=== PATIENT | female | born 1980 | race Two or more races ===

== ENCOUNTER 2018-05-16 02:35 | Inpatient (IN) | payer MEDICAID ==
[2018-05-16] MEDS: LACTATED RINGER'S 1,000 ML IV ×5 (04:10→22:51)
[2018-05-16] MEDS ORDERED: METHYLERGONOVINE 0.2 MG INJ IM (04:30)
[2018-05-16] MEDS ORDERED: LIDOCAINE 1% (MPF) 30 ML INJ INJ (04:30)
[2018-05-16] MEDS ORDERED: OXYTOCIN 30 UNITS/LR 500 ML IV ×2 (04:30)
[2018-05-16] MEDS ORDERED: BUTORPHANOL 1 MG INJ IV (04:30)
[2018-05-16] MEDS ORDERED: CARBOPROST 250 MCG INJ IM (04:30)
[2018-05-16] MEDS ORDERED: MISOPROSTOL 200 MCG TAB PR (04:30)
[2018-05-16] MEDS ORDERED: IBUPROFEN 600 MG TAB PO (04:30)
[2018-05-16 05:15] LABS: ADD MAN DIFF? NO
[2018-05-16 05:22] LABS: BASOPHILS % 0.2 % (0.0-2.0); EOSINOPHILS # 0.1 10^3/ul (0.0-0.5); EOSINOPHILS % 1.1 % (0.0-7.0); HEMATOCRIT 37.4 % (37.0-47.0); HEMOGLOBIN 12.3 g/dl (12.0-16.0); LYMPHOCYTES # 1.6 10^3/ul (0.8-2.9); LYMPHOCYTES % 19.7 % (15.0-51.0); MEAN CORPUSCULAR HGB CONC 32.9 g/dl (32.0-37.0); MEAN CORPUSCULAR VOLUME 91.2 fl (82.0-101.0); MEAN PLATELET VOLUME 11.4 fl (7.4-10.4); MONOCYTE # 0.6 10^3/ul (0.3-0.9); MONOCYTES % 7.3 % (0.0-11.0); NEUTROPHIL # 5.8 10^3/ul (1.6-7.5); NEUTROPHILS % 71.5 % (39.0-77.0); PLATELET COUNT 238 10^3/UL (140-415); RED CELL DISTRIBUTION WIDTH 14.2 % (11.5-14.5)
[2018-05-16 05:22] LABS: WHITE BLOOD COUNT 8.1 10^3/ul (4.8-10.8)
[2018-05-16 05:41] LABS: PROTIME 12.3 Sec (11.9-14.9)
[2018-05-16 05:42] LABS: PARTIAL THROMBOPLASTIN TIME 26.9 Sec (23.0-35.0)
[2018-05-16] MEDS ORDERED: MISOPROSTOL 50 MCG CAPSULE (06:18)
[2018-05-16] MEDS: MISOPROSTOL 50 MCG CAPSULE PO ×4 (06:21→20:18)
[2018-05-16 06:49] LABS: HEPATITIS B SURFACE ANTIGEN NEGATIVE (NEGATIVE)
[2018-05-16] MEDS ORDERED: MISOPROSTOL 50 MCG CAPSULE PO (09:00)
[2018-05-16] MEDS ORDERED: ACETAMINOPHEN 325 MG TAB PO (14:00)
[2018-05-16 15:09] LABS: RAPID PLASMA REAGIN NONREACTIVE (NR)
[2018-05-16] MEDS: BUTORPHANOL 2 MG INJ IV (15:21)
[2018-05-16] MEDS ORDERED: AMPICILLIN 2 GM/NS (PMX) 100 ML (20:16)
[2018-05-16] MEDS: AMPICILLIN 2 GM/NS (PMX) 100 ML IVPB (20:19)
[2018-05-16] MEDS ORDERED: ONDANSETRON 4 MG INJ IV (21:30)
[2018-05-16] MEDS ORDERED: DIPHENHYDRAMINE 50 MG INJ IV (21:30)
[2018-05-16] MEDS ORDERED: NALOXONE (0.4 MG/ML) INJ IV (21:30)
[2018-05-17] MEDS: AMPICILLIN 1 GM/NS (PMX) 50 ML IVPB (00:41)
[2018-05-17] MEDS: FENTAnyl 2MCG/ML-ROPIV 0.2% 100 ML BAG EPI (00:41)
[2018-05-17] MEDS: LACTATED RINGER'S 1,000 ML IV (02:00)
[2018-05-17] MEDS: OXYTOCIN 30 UNITS/LR 500 ML IV ×3 (03:57→05:45)
[2018-05-17] MEDS ORDERED: NACL 0.9% 3 ML SYG IV (04:30)
[2018-05-17] MEDS ORDERED: METHYLERGONOVINE 0.2 MG INJ IM (04:30)
[2018-05-17] MEDS ORDERED: OXYCODONE/ASPIRIN (4.88/325) TAB PO ×2 (04:30)
[2018-05-17] MEDS ORDERED: ONDANSETRON 4 MG INJ IV (04:30)
[2018-05-17] MEDS ORDERED: MISOPROSTOL 200 MCG TAB PR (04:30)
[2018-05-17] MEDS ORDERED: OXYTOCIN 30 UNITS/LR 500 ML IV (04:30)
[2018-05-17] MEDS ORDERED: CARBOPROST 250 MCG INJ IM (04:30)
[2018-05-17] MEDS ORDERED: DIPHENHYDRAMINE 25 MG CAP PO (04:30)
[2018-05-17] MEDS ORDERED: SENNA/DOCUSATE NA (8.6MG/50MG) TAB PO (04:30)
[2018-05-17] MEDS: LANOLIN HPA 1 PKT TOP (06:34)
[2018-05-17] MEDS: BENZOCAINE 20% 56 ML SPRAY TOP (06:34)
[2018-05-17] MEDS: IBUPROFEN 600 MG TAB PO ×4 (06:34→23:57)
[2018-05-17] MEDS: WITCH HAZEL/GLYCERIN PAD PR (06:35)
[2018-05-17] MEDS: SENNA/DOCUSATE NA (8.6MG/50MG) TAB PO ×2 (09:39→20:59)
[2018-05-18] MEDS: LANOLIN HPA 1 PKT TOP (00:01)
[2018-05-18] MEDS: IBUPROFEN 600 MG TAB PO ×3 (05:34→18:28)
[2018-05-18 07:36] LABS: ADD MAN DIFF? NO
[2018-05-18 07:49] LABS: BASOPHILS % 0.4 % (0.0-2.0); EOSINOPHILS # 0.3 10^3/ul (0.0-0.5); EOSINOPHILS % 2.3 % (0.0-7.0); HEMATOCRIT 34.1 % (37.0-47.0); HEMOGLOBIN 10.9 g/dl (12.0-16.0); LYMPHOCYTES % 18.3 % (15.0-51.0); MEAN CORPUSCULAR HEMOGLOBIN 29.9 pg (29.0-33.0); MEAN CORPUSCULAR VOLUME 93.4 fl (82.0-101.0); MEAN PLATELET VOLUME 11.5 fl (7.4-10.4); MONOCYTE # 0.8 10^3/ul (0.3-0.9); MONOCYTES % 6.8 % (0.0-11.0); NEUTROPHIL # 7.9 10^3/ul (1.6-7.5); NEUTROPHILS % 71.9 % (39.0-77.0); PLATELET COUNT 214 10^3/UL (140-415); RED BLOOD COUNT 3.65 10^6/ul (4.20-5.40); RED CELL DISTRIBUTION WIDTH 14.8 % (11.5-14.5)
[2018-05-18] MEDS: SENNA/DOCUSATE NA (8.6MG/50MG) TAB PO ×2 (11:43→21:00)
[2018-05-18] MEDS ORDERED: VITAMIN A & D 5 GM OINT PACKET TOP (14:04)
[2018-05-19] MEDS: IBUPROFEN 600 MG TAB PO ×3 (05:45→12:25)
[2018-05-19] MEDS: SENNA/DOCUSATE NA (8.6MG/50MG) TAB PO (08:43)
== END 2018-05-19 14:10 | disposition home or self-care (01) | DRG 807 ==
LOC: OBT 02:35 → PP1 05-17 05:37 → L-D 02:40 → OBT 03:44 → L-D 03:44
PROVIDERS: Obstetrics & Gynecology
PROC: 10E0XZZ Delivery of Products of Conception, External Approach (ICD-10-PCS; principal; 2018-05-16)
DX: O80 Encounter for full-term uncomplicated delivery (principal); Z37.0 Single live birth; Z3A.39 39 weeks gestation of pregnancy
CPT/HCPCS: 62319; 76815; 82962; 85025; 85610; 85730; 86592; 86850; 86900; 86901; 87340

== ENCOUNTER 2018-08-08 05:33 | Day surgery (SDC) | payer MEDICAID ==
[2018-08-08 06:31] LABS: ADD MAN DIFF? NO
[2018-08-08 06:35] LABS: BASOPHILS % 0.5 % (0.0-2.0); EOSINOPHILS # 0.2 10^3/ul (0.0-0.5); EOSINOPHILS % 3.6 % (0.0-7.0); HEMATOCRIT 39.4 % (37.0-47.0); HEMOGLOBIN 13.1 g/dl (12.0-16.0); LYMPHOCYTES # 1.5 10^3/ul (0.8-2.9); LYMPHOCYTES % 22.1 % (15.0-51.0); MEAN CORPUSCULAR HGB CONC 33.2 g/dl (32.0-37.0); MEAN CORPUSCULAR VOLUME 93.1 fl (82.0-101.0); MEAN PLATELET VOLUME 10.1 fl (7.4-10.4); MONOCYTE # 0.5 10^3/ul (0.3-0.9); MONOCYTES % 6.8 % (0.0-11.0); NEUTROPHIL # 4.4 10^3/ul (1.6-7.5); NEUTROPHILS % 66.7 % (39.0-77.0); PLATELET COUNT 361 10^3/UL (140-415); RED BLOOD COUNT 4.23 10^6/ul (4.20-5.40)
[2018-08-08 06:35] LABS: WHITE BLOOD COUNT 6.6 10^3/ul (4.8-10.8)
[2018-08-08 06:55] LABS: BLOOD UREA NITROGEN 11 mg/dl (7-20)
[2018-08-08] MEDS ORDERED: PROPOFOL 200 MG INJ (07:00)
[2018-08-08] MEDS ORDERED: ALBUTEROL 0.083% (NEB) 2.5 MG/3 ML AMP HHN (07:30)
[2018-08-08] MEDS ORDERED: ONDANSETRON 4 MG INJ IV (07:30)
[2018-08-08] MEDS ORDERED: METOCLOPRAMIDE 10 MG INJ IV (07:30)
[2018-08-08] MEDS ORDERED: HYDROmorphONE 1 MG/5 ML IV SYRINGE IV ×2 (07:30)
[2018-08-08] MEDS ORDERED: MEPERIDINE 25 MG INJ IV (07:30)
[2018-08-08] MEDS ORDERED: FENTAnyl 50 MCG/ML VIAL IV ×2 (07:30)
[2018-08-08] MEDS ORDERED: DIPHENHYDRAMINE 50 MG INJ IV (07:30)
[2018-08-08] MEDS ORDERED: FENTAnyl 50 MCG/ML VIAL (07:38)
[2018-08-08] MEDS ORDERED: ROPIVACAINE 0.5 % 30 ML VIAL (07:38)
[2018-08-08] MEDS ORDERED: LIDOCAINE 100 MG SYRINGE (07:38)
[2018-08-08] MEDS ORDERED: SUCCINYLCHOLINE CHLORIDE 100 MG/5 ML SYG IV (07:38)
[2018-08-08] MEDS ORDERED: CEFAZOLIN 1 GM INJ (07:38)
[2018-08-08] MEDS ORDERED: ROCURONIUM 50 MG INJ (07:38)
[2018-08-08] MEDS ORDERED: SUGAMMADEX SODIUM 200 MG/2 ML VIAL IV (08:38)
[2018-08-08] MEDS: HYDROmorphONE 1 MG/5 ML IV SYRINGE IV (09:12)
== END 2018-08-08 11:01 | disposition home or self-care (01) ==
LOC: SDS 05:33
DX: Z30.2 Encounter for sterilization (principal)
CPT/HCPCS: 58670; 84520; 84703; 85025; 86850; 86900; 86901